=== PATIENT | female | born 1950 | race Hispanic/Latino ===

== ENCOUNTER 2023-10-21 01:06 | Emergency (ER) | payer MEDICARE ==
[~2023-10-21] VITALS: Ht 157.5 cm; Wt 92.0 kg
--- NOTE | ~2023-10-21 | EKG ---
[facility] [address], [place] [address] Draft EK completed, results pending confirmation PATIENT NAME: MILANA PUGH Electrocardiogram DATE OF : 54 PHYSICIAN: PRELIMINARY REPORT #: [id number] REPORT IS CONFIDENTIAL AND NOT TO BE RELEASED WITHOUT AUTHORIZATION
[2023-10-21] MEDS ORDERED: ACETAMINOPHEN 500 MG TAB PO ONE (01:15)
[2023-10-21] MEDS ORDERED: SODIUM CHLORIDE 0.9% 1,000 ML IV ONE ×2 (01:15→03:15)
[2023-10-21] MEDS ORDERED: IBUPROFEN 600 MG TAB PO ONE (01:15)
[2023-10-21] MEDS ORDERED: CEFTRIAXONE/SODIUM CHLORIDE 2 GM/100 ML PIGGYBACK IV ONE (01:30)
[2023-10-21] MEDS ORDERED: AZITHROMYCIN/DEXTROSE 500 MG/250 ML BAG IV ONE (01:30)
[2023-10-21 01:31] LABS: BASOPHILS 0.5 % (0-2); EOSINOPHILS 5.1 % (0-6); HEMATOCRIT 34.4 % (35.0-50.0); HEMOGLOBIN 11.6 g/dL (12.0-18.0); LYMPHOCYTES 7.5 % (24-44); MCH 29.3 (27-36); MCHC 33.7 g/dl (30-36); MCV 86.9 fl (81-99); NEUTROPHILS 82.9 % (39-80); PLATELET COUNT 165 K/uL (140-440); RBC 3.96 M/ul (4.3-5.7); RDW 14.9 (10.5-15.0)
[2023-10-21 01:50] LABS: ALBUMIN 3.1 g/dL (3.4-5.0); ALBUMIN/GLOBULIN RATIO 0.76 (1.1-2.4); ANION GAP 16.8 (7-21); BILIRUBIN, TOTAL 1.3 ng/dL (0.2-1.0); BUN/CREATININE RATIO 22.32 (6.0-28.6); CALCIUM 8.1 mg/dL (8.5-10.1); CREATININE, SERUM 1.12 mg/dL (0.55-1.02); POTASSIUM 3.8 mmol/L (3.5-5.1); PROTEIN, TOTAL 7.2 g/dL (6.4-8.2)
[2023-10-21 01:53] LABS: LACTIC ACID, BLOOD 1.9 mmol/L (0.4-2.0)
[2023-10-21 01:58] LABS: INR 1.1 (0.80-1.30); PROTIME 13.5 Sec (11.2-14.2)
[2023-10-21 02:15] LABS: BILIRUBIN, URINE POSITIVE (negative); BLOOD/HGB, URINE NEGATIVE (Negative); KETONE, URINE TRACE (Negative); LEUK ESTERASE, URINE SMALL (negative); NITRITE, URINE NEGATIVE (negative); PH, URINE 5.5 (5-7)
[2023-10-21 02:29] LABS: BACTERIA, URINE 1+ /hpf (negative); CASTS, URINE NONE SEEN \\lpf; COLLECTION TYPE, URINE CLEAN CATCH; CRYSTALS, URINE NONE SEEN (0-1+); EPITHELIAL CELLS, URINE SQUAMOUS 1+ /lpf (0-1+); REFLEX CULTURE, URINE Yes (No)
[2023-10-21 02:30] LABS: INFLUENZA B NAA NEGATIVE (NEGATIVE); RESPIRATORY SYNCYTIAL VIR NAA NEGATIVE (NEGATIVE)
[2023-10-21] MEDS ORDERED: AZITHROMYCIN500 MG PO (03:05)
[2023-10-21] MEDS ORDERED: CEFDINIR300 MG PO (03:05)
[2023-10-21] MEDS ORDERED: ALBUTEROL SULFATE 8 GM HOME.PACK INH ONE (03:15)
[2023-10-21] MEDS ORDERED: CEFDINIR 300 MG HOME.PACK PO ONE (03:15)
[2023-10-21] MEDS ORDERED: ONDANSETRON 4 MG HOME.PACK SL ONE (03:15)
[2023-10-21] MEDS ORDERED: INHALER, ASSIST DEVICES 1 EACH SPACER MISC ONE (03:15)
[2023-10-21 03:54] VITALS: BP 110/68
== END 2023-10-21 03:55 | disposition home or self-care (01) ==
LOC: ED 01:06
PROVIDERS: Family Medicine
DX: J18.9 Pneumonia, unspecified organism (principal); N39.0 Urinary tract infection, site not specified; I10 Essential (primary) hypertension; E11.9 Type 2 diabetes mellitus without complications; Z11.52 Encounter for screening for COVID-19
CPT/HCPCS: 36415; 71045; 74177; 80053; 81001; 83605; 83880; 84484; 85025; 85610; 87502; 93005; 93010; A9270; J0456; J0696; J7030; Q9967; U0002